=== PATIENT | male | born 1940 | race Caucasian/White ===

== ENCOUNTER 2016-10-30 15:20 | Emergency (ER) | payer OTHER ==
[2016-10-30 15:52] VITALS: TEMP 98.2; O2SAT 93
--- NOTE | 2016-10-30 16:31 | EDPHY ---
H & P Stated Complaint: Tired, feels SOB since arriving in [place] 2 days ago;hx lung disease - Personal History Current Tetanus Diphtheria and Acellular Pertussis (TDAP): Yes - Medical/Surgical History Hx Chronic Respiratory Disease: Yes Other PMH: asbestosis. COPD. interstitial lung disease. PE. PUD. hiatal hernia repair - Social History Smoking Status: Never smoked HPI/ROS: Chief complaint: Trouble breathing History of present illness: This is a 76-year-old male who presents to the emergency department for evaluation treatment of trouble breathing. Patient has a history of underlying lung disease which includes specific exposure, COPD and history of PE, currently taking a [place] curb as a blood thinner. Patient arrived in [place] from [facility] where he lives approximately 2 days ago. Since getting here he has become increasingly short of breath. He states he is not becoming very fatigued. Symptoms are worse with exertion, better with rest. He denies other associated signs or symptoms including no actual pain including no headache or chest pain, no pain or swelling in the legs , no systemic symptoms such as lightheadedness, dizziness, no cold symptoms. Review of systems: A 10 point review of systems was obtained and other than described above was negative (Sukumar England) - Physical Exam Exam: General Appearance: Alert, nontoxic. Eyes: Pupils equal and round no pallor or injection. ENT, Mouth: Mucous membranes moist. Respiratory: No use of accessary muscles or evidence of respiratory distress. Diffuse rales most pronounced in the lower lung álvarez. Cardiovascular: Regular rate and rhythm. Gastrointestinal: Abdomen is soft and nontender, no masses, bowel sounds normal. Neurological: Alert and oriented x4. Strength and sensation intact and symmetrical. Skin: Warm and dry, no rashes. Musculoskeletal: Neck is supple nontender. Extremities are symmetrical, full range of motion. Psychiatric: Patient is oriented X 3, there is no agitation. (Sukumar England) Constitutional: Initial Vital Signs Temperature (C) 36.8 C 10/30/16 15:47 Heart Rate 91 10/30/16 15:47 Respiratory Rate 22 H 10/30/16 15:47 Blood Pressure 116/92 H 10/30/16 15:47 O2 Sat (%) 93 10/30/16 15:47 O2 Delivery Mode Room Air Allergies/Adverse Reactions: aspirin Allergy (Unknown, Verified 10/30/16 15:55) not allergic;can't take due to PUD Home Medications: Medication Instructions Recorded Albuterol Sulfate [ALBUTEROL 0.63 mg 10/30/16 SULFATE] Fluticasone/Salmeterol [Advair Hfa 12 gm 10/30/16 115-21 Mcg Inhaler] Sucralfate [Carafate] 1 gm PO 10/30/16 Tiotropium Inhaler [Spiriva 1 inh 10/30/16 Inhaler] Medical Decision Making ED Course/Re-evaluation: 6:50 p.m. the patient did well with his road test. He maintain saturations above 90%. I met him in the hallway as he was walking to the bathroom. He is very energetic and states that he feels great and wants to go home. He will continue using albuterol as needed. We discussed indications for returning. 7:15 p.m. I had a long conversation with the patient and his family members. They feel comfortable going home. We discussed future treatment. We gave him a spacer to help with his inhalers. I advised him to return here to the emergency department if his symptoms return. (Mannie Bonds) Patient is seen in conjunction with my secondary supervising physician Dr. Mannie Bonds. Patient presents to the emergency department with shortness of breath. On presentation he is nontoxic. Afebrile and vital signs are stable. He is treated with a DuoNeb with improvement in symptoms. Baseline blood studies including troponin and D-dimer are unremarkable. EKG unremarkable. Chest x-ray stable. My suspicion for serious underlying pathology requiring further emergency department intervention or inpatient management is low. Patient is comfortable being discharged home. Home care is discussed including continuing to use his inhaler, he is given a spacer to facilitate usage. Return precautions are given. Patient and family voiced understanding and agreement with plan. (Sukumar England) - Data Points Laboratory Results: Laboratory Results 10/30/16 16:00 10/30/16 16:00 Medications Given: Discontinued Medications Albuterol/Ipratropium (Duoneb) 3 ml EDNOW ONE Stop: 10/30/16 16:33 Last Admin: 10/30/16 16:51 Dose: 3 ml Departure - Departure Disposition: Home, Routine, Self-Care Clinical Impression: Dyspnea Qualifiers: Dyspnea type: unspecified Qualified Code(s): R06.00 - Dyspnea, unspecified Reactive airway disease Qualifiers: Asthma severity: unspecified severity Asthma complication type: uncomplicated Qualified Code(s): J45.909 - Unspecified asthma, uncomplicated Condition: Good Instructions: COPD (Chronic Obstructive Pulmonary Disease) (ED), Dyspnea (ED) Additional Instructions: Follow-up with your primary care doctor when you return home If symptoms worsen or new symptoms develop return to the emergency room for recheck Referrals: GUTSA[facility] LU[facility] [Other] - As per Instructions
[2016-10-30] MEDS ORDERED: IPRATROPIUM/ALBUTEROL 3 ML DEYVIAL IH ONE (16:32)
--- NOTE | 2016-10-30 16:46 | CPEKG ---
Heart Rate: 73 RR Interval: 822 P-R Interval: 172 QRSD Interval: 92 QT Interval: 384 QTC Interval: 424 P [place]: 50 QRS [place]: -20 T Wave [place]: 7 EKG Severity - OTHERWISE NORMAL ECG - EKG Impression: SINUS RHYTHM EKG Impression: BORDERLINE LEFT AXIS DEVIATION Electronically Signed By: Mannie Bonds 30-Oct-2016 17:02:16
[2016-10-30 18:03] LABS: % IMMATURE GRANULYOCYTES 0.5 % (0.0-1.1); ABSOLUTE IMMATURE GRANULOCYTES 0.05 10^3/uL (0.00-0.10); ADD DIFF? NO; ADD MORPH? NO; ADD SCAN? NO; ATYPICAL LYMPHOCYTE FLAG 0 (0-99); FRAGMENT RBC FLAG 0 (0-99); LEFT SHIFT FLG 0 (0-99); LIPEMIA HEMOLYSIS FLAG 80 (0-99); MEAN CELL HEMOGLOBIN 30.4 pg (27.9-34.1); MEAN CELL HEMOGLOBIN CONCENTR. 33.3 g/dL (32.4-36.7); MEAN CELL VOLUME 91.1 fL (81.5-99.8); MEAN PLATELET VOLUME 10.3 fL (8.7-11.7); PLATELET CLUMPS FLAG 0 (0-99); PLATELET COUNT 221 10^3/uL (150-400); RED BLOOD CELL COUNT 4.61 10^6/uL (4.40-6.38); RED CELL DISTRIBUTION WIDTH 16.6 % (11.5-15.2)
[2016-10-30 18:09] LABS: ANION GAP 11 mEq/L (8-16); CALCIUM 8.7 mg/dL (8.5-10.4); CARBON DIOXIDE 21 mEq/l (22-31); CHLORIDE 112 mEq/L (97-110); CREATININE 0.9 mg/dL (0.7-1.3); GLOMERULAR FILTRATION RATE > 60; GLUCOSE 102 mg/dL (70-100); SODIUM 144 mEq/L (134-144)
[2016-10-30 18:25] LABS: TROPONIN I < 0.012 ng/mL (0-0.034)
[2016-10-30 19:20] VITALS: BP 122/73; PULSE 77; RESP 18
== END 2016-10-30 19:18 | disposition home or self-care (01) ==
DX: J45.909 Unspecified asthma, uncomplicated (principal); J44.9 Chronic obstructive pulmonary disease, unspecified